=== PATIENT | female | born 1995 | race African-American/Black ===

== ENCOUNTER 2016-12-15 11:50 | Day surgery (SDC) | payer OTHER ==
[~2016-12-15 11:50] MED LIST: DIPHENHYDRAMINE HCL 50 MG/ML VIAL ONE; EPINEPHRINE INJ 1 MG/10 ML DISP.SYRIN ONE; FENTANYL CITRATE INJ/PF 100 MCG/2 ML AMPUL ONE; FLUMAZENIL INJ 0.5 MG/5 ML VIAL IV ONE; GLUCAGON,HUMAN RECOMB 1 MG INJ ONE; MIDAZOLAM 2 MG/2 ML INJ ONE; NALOXONE HCL INJ/PF 0.4 MG/1 ML SDV ONE; ONDANSETRON HCL INJ/PF 4 MG/2 ML SDV ONE
--- NOTE | 2016-12-15 13:04 | Operative Report ---
Operative Report DATE OF SURGERY: 12/15/16 Operative Report: The risks benefits and alternatives of the procedure explained to the patient in detail and informed consent is obtained that GIF Olympus video scope was inserted into the patient's mouth and hypopharynx the esophagus is identified intubated and insufflated the scope was then advanced through the esophagus stomach and duodenum retroflexion maneuver is done the esophagus stomach and first and second portions of the duodenum examined PREOPERATIVE DIAGNOSIS: Epigastric pain POSTOPERATIVE DIAGNOSIS: Gastritis. Duodenitis OPERATION: EGD with biopsy SURGEON: MAHENDRA BROWN ANESTHESIA: Other - no sedation provided. patient wanted it done without sedation TISSUE REMOVED OR ALTERED: Gastric mucosal specimen obtained rule out Helicobacter pylori COMPLICATIONS: None. ESTIMATED BLOOD LOSS: none. INTRAOPERATIVE FINDINGS: As described above. Esophagus normal. First and second portions of the duodenum showing slight irritation PROCEDURE: Patient tolerated the procedure well. No immediate postprocedure complications noted. Patient discharged in good condition. Discharge date 12/15/2016. Discharge diet: Regular. Discharge activity: Regular. 2-3 week follow-up to discuss findings. Patient is instructed to the emergency room or call the office should there be any further problems or questions. We'll await on biopsies.
[2016-12-15 13:33] VITALS: BP 119/61
== END 2016-12-15 13:25 | disposition home or self-care (01) ==
LOC: END 11:50
PROVIDERS: ATTEND Internal Medicine Gastroenterology
PROC: 0DB68ZX Excision of Stomach, Via Natural or Artificial Opening Endoscopic, Diagnostic (ICD-10-PCS; principal; 2016-12-15 12:30)
DX: K29.50 Unspecified chronic gastritis without bleeding (principal); K29.80 Duodenitis without bleeding; Z88.5 Allergy status to narcotic agent
CPT/HCPCS: 43239; 88305; 88342; J0171; J1200; J1610; J2250; J2310; J2405; J3010; J3490

== ENCOUNTER 2017-02-01 11:46 | Day surgery (SDC) | payer OTHER ==
[~2017-02-01 11:46] MED LIST changes: -DIPHENHYDRAMINE HCL 50 MG/ML VIAL ONE; -EPINEPHRINE INJ 1 MG/10 ML DISP.SYRIN ONE; -FENTANYL CITRATE INJ/PF 100 MCG/2 ML AMPUL ONE; -FLUMAZENIL INJ 0.5 MG/5 ML VIAL IV ONE; -GLUCAGON,HUMAN RECOMB 1 MG INJ ONE; -MIDAZOLAM 2 MG/2 ML INJ ONE; -NALOXONE HCL INJ/PF 0.4 MG/1 ML SDV ONE; -ONDANSETRON HCL INJ/PF 4 MG/2 ML SDV ONE; +PROPOFOL INJ 200 MG/20 ML VIAL IV ONE
[2017-02-01] MEDS ORDERED: ONDANSETRON HCL INJ/PF 4 MG/2 ML SDV ONE (12:01)
[2017-02-01] MEDS ORDERED: MIDAZOLAM 2 MG/2 ML INJ ONE (12:01)
[2017-02-01] MEDS ORDERED: DIPHENHYDRAMINE HCL 50 MG/ML VIAL ONE (12:01)
[2017-02-01] MEDS ORDERED: NALOXONE HCL INJ/PF 0.4 MG/1 ML SDV ONE (12:01)
[2017-02-01] MEDS ORDERED: EPINEPHRINE INJ 1 MG/10 ML DISP.SYRIN ONE (12:02)
[2017-02-01] MEDS ORDERED: FLUMAZENIL INJ 0.5 MG/5 ML VIAL IV ONE (12:02)
[2017-02-01] MEDS ORDERED: GLUCAGON,HUMAN RECOMB 1 MG INJ ONE (12:02)
[2017-02-01] MEDS ORDERED: FENTANYL CITRATE INJ/PF 100 MCG/2 ML AMPUL ONE (12:02)
--- NOTE | 2017-02-01 13:14 | Operative Report ---
Operative Report DATE OF SURGERY: 02/01/17 Operative Report: The risks, benefits and alternatives of the procedure including risks of bleeding, perforation requiring surgery are explained to the patient detail and informed consent was obtained. Patient was taken back to the endoscopy suite. She is placed in the left, lateral decubital position. Was called. Conscious sedation medications are provided. An Olympus endoscope was inserted into the patient's rectum. The scope was then carefully advanced all the way to the cecum. The cecum was identified by the usual anatomical landmarks including the ileocecal valve as well as the appendiceal office. Intubation of the terminal ileum was done. Prep is good. Scope was then sequentially pulled back. The rest segments of the colon including the ascending colon, hepatic flexure, transverse colon, splenic flexure, descending colon and finally to the rectosigmoid portions of the colon. Retro-flexion maneuvers performed. PREOPERATIVE DIAGNOSIS: Rectal bleeding POSTOPERATIVE DIAGNOSIS: Mild terminal ileitis status post biopsy OPERATION: Colonoscopy with biopsy SURGEON: MAHENDRA BROWN ANESTHESIA: Moderate Sedation - 25 mg of Benadryl, 2 mg of Versed, 75 mcg of fentanyl. Conscious sedation monitoring time 30 minutes. TISSUE REMOVED OR ALTERED: Terminal ileum specimens obtained to rule out Crohn' s disease COMPLICATIONS: None. ESTIMATED BLOOD LOSS: None. INTRAOPERATIVE FINDINGS: No masses, AVMs, diverticulosis noted. PROCEDURE: Patient tolerated the procedure well. No immediate postprocedure complications are noted. Patient discharged in good condition. Discharge date 02/01/2017. Discharge diet: Regular. Discharge activity: Regular. 2-3 week follow-up to discuss findings. Patient is instructed to call the office or proceed to the emergency room should there be any further problems or questions. We will wait on pathology.
[2017-02-01 14:02] VITALS: BP 119/70
== END 2017-02-01 14:05 | disposition home or self-care (01) ==
LOC: END 11:46
PROVIDERS: ATTEND Internal Medicine Gastroenterology
PROC: 0DBB8ZX Excision of Ileum, Via Natural or Artificial Opening Endoscopic, Diagnostic (ICD-10-PCS; principal; 2017-02-01 14:30)
DX: K52.9 Noninfective gastroenteritis and colitis, unspecified (principal); K62.5 Hemorrhage of anus and rectum
CPT/HCPCS: 45380; 88305 ×2; J2250; J1200; J3010; J0171; J1610; J2310; J2405; J2704; J3490

== ENCOUNTER 2017-10-14 20:57 | Emergency (ER) | payer OTHER ==
--- NOTE | 2017-10-14 21:12 | ER Document Report ---
ED Psych Disorder / Suicide - General Chief Complaint: Suicidal Ideation Stated Complaint: POSSIBLE OVERDOSE Time Seen by Provider: 10/14/17 21:11 Notes: The patient is a 22-year-old female, no prior mental health diagnoses, presents after she took 14 Advil cold tabs at 2000 tonight and attempt to kill herself. She said that she does not think she swallowed any because she immediately vomited them up and called EMS. EMS gave her charcoal 30 minutes after the ingestion. Patient says that she has had frequent thoughts of killing herself and she was age 13, but has never seen a mental health professional. Patient denies any pain, nausea, vomiting, hallucinations, increased stressors, alcohol use, chest pain or shortness of breath. TRAVEL OUTSIDE OF THE [place] IN LAST 30 DAYS: No - Related Data Allergies/Adverse Reactions: acetaminophen [From Tylenol] Allergy (Intermediate, Verified 02/01/17 12:03) Vomiting oxycodone Allergy (Unknown, Verified 02/01/17 12:03) Vomiting andrez-seltzer liquid Allergy (Intermediate, Uncoded 02/01/17 12:03) Nausea narcotics Allergy (Intermediate, Uncoded 02/01/17 12:03) VOMITING Past Medical History - General Information source: Patient - Social History Smoking Status: Unknown if Ever Smoked Family History: Reviewed & Not Pertinent - Past Medical History Cardiac Medical History: Denies: Hx Coronary Artery Disease, Hx Heart Attack, Hx Hypertension Pulmonary Medical History: Denies: Hx Asthma, Hx Bronchitis, Hx COPD, Hx Pneumonia Neurological Medical History: Denies: Hx Cerebrovascular Accident, Hx Seizures - states "been seeing flashing lights, started when stomach pain started." Musculoskeltal Medical History: Denies Hx Arthritis Past Surgical History: Denies: Hx Hysterectomy - Immunizations Hx Diphtheria, Pertussis, Tetanus Vaccination: Yes Review of Systems - Review of Systems Notes: REVIEW OF SYSTEMS: CONSTITUTIONAL: -fevers, -chills EENT: -eye pain, -difficulty swallowing, -nasal congestion CARDIOVASCULAR: -chest pain, -syncope. RESPIRATORY: -cough, -SOB GASTROINTESTINAL: -abdominal pain, -nausea, -vomiting, -diarrhea GENITOURINARY: -dysuria, -hematuria MUSCULOSKELETAL: -back pain, -neck pain SKIN: -rash or skin lesions. HEMATOLOGIC: -easy bruising or bleeding. LYMPHATIC: -swollen, enlarged glands. NEUROLOGICAL: -altered mental status or loss of consciousness, -headache, - neurologic symptoms PSYCHIATRIC: -anxiety, +depression, +SI ALL OTHER SYSTEMS REVIEWED AND NEGATIVE. Physical Exam - Vital signs Vitals: Temp Resp BP Pulse Ox 99.3 F 18 133/89 H 100 10/14/17 21:04 10/14/17 21:04 10/14/17 21:04 10/14/17 21:04 - Notes Notes: PHYSICAL EXAMINATION: GENERAL: Well-appearing, well-nourished and in no acute distress. HEAD: Atraumatic, normocephalic. EYES: Pupils equal round and reactive to light, extraocular movements intact, sclera anicteric, conjunctiva are normal. ENT: nares patent, oropharynx clear without exudates. Moist mucous membranes. NECK: Normal range of motion, supple without lymphadenopathy LUNGS: Breath sounds clear to auscultation bilaterally and equal. No wheezes rales or rhonchi. HEART: Regular rate and rhythm without murmurs ABDOMEN: Soft, nontender, normoactive bowel sounds. No guarding, no rebound. No masses appreciated. EXTREMITIES: Normal range of motion, no pitting or edema. No cyanosis. NEUROLOGICAL: Cranial nerves grossly intact. Normal speech, normal gait. Normal sensory and motor exams. PSYCH: Bizarre affect. Suicidal thoughts. SKIN: Warm, Dry, normal turgor, no rashes or lesions noted. Course - Re-evaluation Re-evalutation: Patient appears very well. Do not suspect that she actually ingested any of the medications inside her. Advil and a small amount of NyQuil would not cause any dangerous toxicologic emergencies. We will continue to monitor. Because this was an intentional suicide attempt, an IVC was filled out. Will have mental health evaluate patient in the morning. - Vital Signs Vital signs: Temp Pulse Resp BP Pulse Ox 99.3 F 22 H 133/89 H 100 10/14/17 21:04 10/14/17 21:05 10/14/17 21:04 10/14/17 21:05 - Laboratory Result Diagrams: 10/14/17 20:48 10/14/17 20:48 Laboratory results interpreted by me: 10/14/17 20:48 RDW 14.6 H - EKG Interpretation by Ut EKG shows normal: Sinus rhythm, [place], Intervals, QRS Complexes, ST-T Waves Discharge - Discharge Clinical Impression: Suicide attempt by inadequate means Qualifiers: Encounter type: initial encounter Qualified Code(s): X83.8XXA - Intentional self-harm by other specified means, initial encounter Condition: Stable
[2017-10-14 21:21] LABS: ABSOLUTE BASOPHILS # (AUTO) 0.1 10^3/uL (0.0-0.2); ABSOLUTE LYMPHOCYTES (AUTO) 2.7 10^3/uL (0.5-4.7); ABSOLUTE MONOCYTES (AUTO) 0.6 10^3/uL (0.1-1.4); ABSOLUTE NEUT (AUTO) 6.8 10^3/uL (1.7-8.2); BASOPHILS % (AUTO) 0.6 % (0-2); EOSINOPHILS % (AUTO) 0.2 % (0-6); HEMATOCRIT 40.6 % (36.0-47.0); HEMOGLOBIN 13.7 g/dL (12.0-15.5); LYMPHOCYTES % (AUTO) 26.7 % (13-45); MEAN CORPUSCULAR HGB CONC 33.7 g/dL (32.0-36.0); MEAN CORPUSCULAR VOLUME 83 fl (80-97); MONOCYTES % (AUTO) 6.2 % (3-13); PLATELET COUNT 328 10^3/uL (150-450); RED BLOOD COUNT 4.88 10^6/uL (3.72-5.28); RED CELL DISTRIBUTION WIDTH 14.6 % (11.5-14.0); SEGMENTED NEUTROPHILS % (AUTO) 66.3 % (42-78); TOTAL CELLS COUNTED % (AUTO) 100 %; WHITE BLOOD COUNT 10.2 10^3/uL (4.0-10.5)
[2017-10-14 22:49] LABS: ALANINE AMINOTRANSFERASE 31 U/L (9-52); ALBUMIN 4.8 g/dL (3.5-5.0); ALKALINE PHOSPHATASE 65 U/L (38-126); ANION GAP 14 (5-19); ASPARTATE AMINO TRANSFERASE 23 U/L (14-36); BILIRUBIN,DIRECT 0.1 mg/dL (0.0-0.4); BLOOD UREA NITROGEN 11 mg/dL (7-20); CALCIUM 10.1 mg/dL (8.4-10.2); CARBON DIOXIDE 21 mmol/L (22-30); CHLORIDE 106 mmol/L (98-107); GLUCOSE 96 mg/dL (75-110); POTASSIUM 3.8 mmol/L (3.6-5.0); SODIUM 141.1 mmol/L (137-145); TOTAL PROTEIN 7.6 g/dL (6.3-8.2)
[2017-10-14 22:50] LABS: ACETAMINOPHEN < 10 ug/mL (10-30); ALCOHOL < 10 mg/dL (NONE DETECTED); SALICYLATE < 1.0 mg/dL (2.0-20.0)
[2017-10-14 23:12] LABS: APPEARANCE,URINE SLIGHTLY-CLOUDY; BILIRUBIN,URINE NEGATIVE (NEGATIVE); COLOR,URINE YELLOW; GLUCOSE, URINE NEGATIVE (NEGATIVE); KETONES,URINE 80 mg/dL (NEGATIVE); LEUKOCYTE ESTERASE,URINE NEGATIVE (NEGATIVE); NITRITE,URINE NEGATIVE (NEGATIVE); PROTEIN,URINE 30 mg/dL (NEGATIVE)
[2017-10-14 23:26] LABS: URINE AMPHETAMINES SCREEN NEGATIVE; URINE BARBITURATES SCREEN NEGATIVE; URINE BENZODIAZEPINES SCREEN NEGATIVE; URINE COCAINE SCREEN NEGATIVE; URINE MARIJUANA (THC) SCREEN UNCONFIRMED POSITIVE; URINE METHADONE SCREEN NEGATIVE; URINE PHENCYCLIDINE SCREEN NEGATIVE
--- NOTE | 2017-10-15 08:01 | EKG REPORT ---
SEVERITY:- ABNORMAL ECG - SINUS RHYTHM ABNORMAL T, CONSIDER ISCHEMIA, ANTERIOR LEADS : Confirmed by: Ricardo Alcaraz MD 15-Oct-2017 08:00:37
--- NOTE | 2017-10-15 09:24 | ER Document Report ---
Doctor's Note Notes: 10/15/17 09:24 As the rounding physician for our psychiatric patients, I have reviewed the chart, vitals, lab work. Patient has been examined and noted to be stable, she is not no longer agitated. I am awaiting mental health in put. 10/15/17 14:29
[2017-10-15 12:38] VITALS: BP 139/91
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
== END 2017-10-15 13:00 | disposition home or self-care (01) ==
LOC: ER 20:57
DX: R45.851 Suicidal ideations (principal); X83.8XXA Intentional self-harm by other specified means, initial encounter; Z88.6 Allergy status to analgesic agent
CPT/HCPCS: 36415; 80053; 80307; 81001; 84703; 85025; 93005; 93010; 99285